=== PATIENT | male | born 1940 | race Caucasian/White ===

== ENCOUNTER 2016-10-26 11:22 | Outpatient (CLI) | payer MEDICARE, OTHER ==
[2015-04-04 09:35] VITALS: BP 150/73
== END 2016-10-26 11:30 ==
LOC: CARD 11:22
PROVIDERS: ATTEND Internal Medicine Cardiovascular Disease
DX: R07.9 Chest pain, unspecified (principal)
CPT/HCPCS: 93017; G0463